=== PATIENT | female | born 1950 | race African-American/Black ===

== ENCOUNTER 2018-10-19 20:04 | Inpatient (IN) | payer OTHER ==
[~2018-10-19] VITALS: Ht 177.8 cm; Wt 62.4 kg
[2018-10-19 20:20] LABS: BASOPHIL % 0.3 % (0-2); PLATELET COUNT 293 x10^3mcL (130-400)
[2018-10-19 20:23] LABS: RED CELL DISTRIBUTION WIDTH 16.3 % (11.5-14.5)
[2018-10-19 20:38] LABS: ALBUMIN 3.5 g/dL (3.4-5.0); ALKALINE PHOSPHATASE 123 U/L (46-116); ALT/SGPT 45 U/L (14-59); AST/SGOT 53 U/L (15-37); BILIRUBIN TOTAL 0.21 mg/dL (0.20-1.00); CALCIUM 9.6 mg/dL (8.5-10.1); CARBON DIOXIDE 27.2 mmol/L (21-32); CHLORIDE SERUM 107 mmol/L (98-107); CREATININE SERUM 0.8 mg/dL (0.6-1.0); GFR1 > 60 mL/min; GLUCOSE SERUM 143 mg/dL (74-106); SODIUM SERUM 143 mmol/L (136-145); TOTAL PROTEIN, SERUM 6.3 g/dL (6.4-8.2)
[2018-10-19 20:40] LABS: POTASSIUM SERUM 2.9 mmol/L (3.5-5.1)
[2018-10-19] MEDS ORDERED: VENLAFAXINE H37.5 M1 PO (22:46)
[2018-10-19] MEDS ORDERED: LOSARTAN POTASS50 M1 PO (22:46)
[2018-10-19] MEDS ORDERED: BANOPHEN50 MG PO (22:48)
[2018-10-19] MEDS ORDERED: METHOTREXATE2.5 M2 PO (22:49)
[2018-10-19] MEDS ORDERED: MET2.5 PO (22:51)
[2018-10-19] MEDS ORDERED: HYDROXYCHLOROQ200 MG PO (22:52)
[2018-10-19] MEDS ORDERED: ACETAMINOPHEN &1 TA1 PO (22:53)
[2018-10-19] MEDS ORDERED: MECLIZINE HYDRO25 M1 PO (22:55)
[2018-10-19] MEDS ORDERED: FLONS (22:56)
[2018-10-19] MEDS ORDERED: MOT800 PO (22:56)
[2018-10-19 23:33] VITALS: BP 137/57
[2018-10-19 23:40] VITALS: Ht 177.8 cm; Wt 62.4 kg
[2018-10-19 23:51] LABS: CHOLESTEROL/HDL RATIO 1.9
[2018-10-20 00:26] LABS: T3 TOTAL 0.95 ng/mL
[2018-10-20 01:15] LABS: FREE T4 1.01 ng/dL (0.76-1.46); FREE THYROXINE INDEX 2.6 ug/dL (1.4-4.5); T4(THYROXINE) 7.1 ug/dL (4.7-13.3)
[2018-10-20 06:06] VITALS: BP 128/58
[2018-10-20 07:14] LABS: BASOPHIL % 0.4 % (0-2); PLATELET COUNT 276 x10^3mcL (130-400)
[2018-10-20 07:16] LABS: RED CELL DISTRIBUTION WIDTH 16.3 % (11.5-14.5)
[2018-10-20 07:45] LABS: CALCIUM 9.6 mg/dL (8.5-10.1); CARBON DIOXIDE 27.3 mmol/L (21-32); CHLORIDE SERUM 108 mmol/L (98-107); CREATININE SERUM 0.6 mg/dL (0.6-1.0); GFR1 > 60 mL/min; GLUCOSE SERUM 90 mg/dL (74-106); POTASSIUM SERUM 3.2 mmol/L (3.5-5.1); SODIUM SERUM 145 mmol/L (136-145)
[2018-10-20 10:03] VITALS: BP 117/51
[2018-10-20 11:19] LABS: microscopic required? YES; urine erythrocyte NEGATIVE (NEGATIVE)
[2018-10-20 11:31] LABS: AMPHETAMINE QUAL UR NONE DETECTED (See below)
[2018-10-20 13:04] VITALS: BP 121/53
[2018-10-20] MEDS ORDERED: ASPIR 8181 MG PO (13:53)
[2018-10-20] MEDS ORDERED: KEFLEX500 M1 PO (14:13)
[2018-10-20 16:52] VITALS: BP 121/53
[2018-10-20 17:15] VITALS: BP 121/55
== END 2018-10-20 17:20 | disposition home or self-care (01) | DRG 880 ==
LOC: ED 20:04 → DU 22:29 → MU 10-20 13:47 → DU 10-20 13:48
PROVIDERS: Emergency Medicine; ADMIT Family Medicine
DX: F41.9 Anxiety disorder, unspecified (principal); N17.0 Acute kidney failure with tubular necrosis; N39.0 Urinary tract infection, site not specified; E87.6 Hypokalemia; M06.9 Rheumatoid arthritis, unspecified; I10 Essential (primary) hypertension; R74.0 Nonspecific elevation of levels of transaminase and lactic acid dehydrogenase [LDH]; Z79.82 Long term (current) use of aspirin; Z68.21 Body mass index [BMI] 21.0-21.9, adult; Z87.891 Personal history of nicotine dependence; Z79.1 Long term (current) use of non-steroidal anti-inflammatories (NSAID)
CPT/HCPCS: 83880; 84439; J7030; J8597; Q0092

== ENCOUNTER 2018-12-18 10:46 | Emergency (ER) | payer OTHER ==
[~2018-12-18] VITALS: Ht 175.3 cm; Wt 78.5 kg
[~2018-12-18 10:46] MED LIST: ACETAMINOPHEN &1 TA1 PO; ASPIR 8181 MG PO; BANOPHEN50 MG PO; FLONS; HYDROXYCHLOROQ200 MG PO; KEFLEX500 M1 PO; LOSARTAN POTASS50 M1 PO; MECLIZINE HYDRO25 M1 PO; MET2.5 PO; METHOTREXATE2.5 M2 PO; MOT800 PO; VENLAFAXINE H37.5 M1 PO
[2018-12-18 11:00] VITALS: Ht 175.3 cm; Wt 78.5 kg
[2018-12-18 11:46] LABS: BASOPHIL % 0.3 % (0-2)
[2018-12-18 11:55] LABS: PLATELET COUNT 463 x10^3mcL (130-400); RED CELL DISTRIBUTION WIDTH 15.9 % (11.5-14.5)
[2018-12-18 12:00] LABS: CALCIUM 9.3 mg/dL (8.5-10.1); CARBON DIOXIDE 24.5 mmol/L (21-32); CREATININE SERUM 1.1 mg/dL (0.6-1.0); POTASSIUM SERUM 4.1 mmol/L (3.5-5.1)
[2018-12-18 12:04] LABS: BILIRUBIN TOTAL 0.22 mg/dL (0.20-1.00); TOTAL PROTEIN, SERUM 7.3 g/dL (6.4-8.2)
[2018-12-18 12:06] LABS: ALBUMIN 2.7 g/dL (3.4-5.0)
[2018-12-18 17:48] VITALS: BP 133/56
== END 2018-12-18 17:49 | disposition short-term general hospital (02) ==
LOC: ED 10:46
DX: K81.9 Cholecystitis, unspecified (principal); I10 Essential (primary) hypertension; M19.90 Unspecified osteoarthritis, unspecified site
CPT/HCPCS: J1885; J2543

== ENCOUNTER 2020-03-17 15:00 | Emergency (ER) | payer OTHER ==
[~2020-03-17] VITALS: Ht 175.3 cm; Wt 68.0 kg
[2020-03-17 15:06] VITALS: Ht 175.3 cm; Wt 68.0 kg
[2020-03-17 15:35] VITALS: BP 114/43
== END 2020-03-17 16:09 | disposition left against medical advice (07) ==
LOC: ED 15:00
DX: R07.89 Other chest pain (principal); R42 Dizziness and giddiness; I10 Essential (primary) hypertension; M19.90 Unspecified osteoarthritis, unspecified site; Z87.19 Personal history of other diseases of the digestive system
CPT/HCPCS: 83880

== ENCOUNTER 2020-03-18 11:49 | Emergency (ER) | payer OTHER ==
[~2020-03-18] VITALS: Ht 177.8 cm; Wt 74.8 kg
[2020-03-18 11:53] VITALS: Ht 177.8 cm; Wt 74.8 kg
[2020-03-18 12:50] LABS: BASOPHIL % 0.5 % (0-2); PLATELET COUNT 280 x10^3mcL (130-400); RED CELL DISTRIBUTION WIDTH 13.8 % (11.5-14.5)
[2020-03-18 13:10] LABS: CALCIUM 9.4 mg/dL (8.5-10.1); CARBON DIOXIDE 25.3 mmol/L (21-32); CREATININE SERUM 1.1 mg/dL (0.6-1.0); POTASSIUM SERUM 3.4 mmol/L (3.5-5.1)
[2020-03-18 13:15] LABS: ALBUMIN 3.6 g/dL (3.4-5.0); BILIRUBIN TOTAL 0.32 mg/dL (0.20-1.00); TOTAL PROTEIN, SERUM 6.9 g/dL (6.4-8.2)
[2020-03-18 15:41] VITALS: BP 105/56
== END 2020-03-18 15:41 | disposition home or self-care (01) ==
LOC: ED 11:49
PROVIDERS: Student in an Organized Health Care Education/Training Program
DX: R07.89 Other chest pain (principal); I10 Essential (primary) hypertension; M19.90 Unspecified osteoarthritis, unspecified site; Z90.710 Acquired absence of both cervix and uterus; Z87.19 Personal history of other diseases of the digestive system
CPT/HCPCS: Q0092